=== PATIENT | female | born 1950 | race Caucasian/White ===

== ENCOUNTER 2022-10-05 14:42 | Emergency (ER) | payer MEDICARE ==
[~2022-10-05] VITALS: Ht 162.6 cm; Wt 61.0 kg
[2022-10-05] VITALS (38 sets, daily range): BP systolic 87–211; BP diastolic 53–115
[2022-10-05] MEDS ORDERED: LABETALOL XX (17:01)
[2022-10-05] MEDS ORDERED: LEVOTHYROXIN125 MCG PO (17:02)
[2022-10-05] MEDS ORDERED: VERAPAMIL240 M1 PO (17:03)
[2022-10-05] MEDS ORDERED: MAXZIDE PO (17:04)
== END 2022-10-05 22:17 | disposition home or self-care (01) ==
LOC: ED 14:42
PROC: 0PSJXZZ Reposition Left Radius, External Approach (ICD-10-PCS; principal; 2022-10-05)
PROC: 0PSLXZZ Reposition Left Ulna, External Approach (ICD-10-PCS; 2022-10-05)
DX: S52.502A Unspecified fracture of the lower end of left radius, initial encounter for closed fracture (principal); S52.612A Displaced fracture of left ulna styloid process, initial encounter for closed fracture; S50.812A Abrasion of left forearm, initial encounter; I10 Essential (primary) hypertension; W01.0XXA Fall on same level from slipping, tripping and stumbling without subsequent striking against object, initial encounter
CPT/HCPCS: J0690